=== PATIENT | female | born 1955 | race Two or more races ===

== ENCOUNTER 2018-10-20 22:20 | Inpatient (IN) | payer MEDICARE, OTHER ==
[~2018-10-20] VITALS: Ht 152.4 cm; Wt 54.4 kg
--- NOTE | 2018-10-20 22:27 | NUR ---
"BAHMAN FROM [facility] FOR SOB, VENT/TRACH, O2 SAT 99%, DENIES PAIN" PT IS ALERT, PT IS MECH VENT DEPENDENT, ABLE TO MAKE NEEDS KNOWN, PT ON MONITOR, VSS, RT AND MD AT BEDSIDE
[2018-10-20] MEDS ORDERED: ACETAMINOPHEN ES 500 MG TABLET GT ONE (23:00)
[2018-10-20] MEDS ORDERED: IV NS 0.9% 1,000 ML BAG IV ONE ×2 (23:00)
[2018-10-20] MEDS ORDERED: ACETAMINOPHEN ES 500 MG TABLET ONE (23:10)
[2018-10-20 23:11] LABS: BASOPHILS # (AUTO) 0.1 /CMM (0.0-0.2); BASOPHILS % (AUTO) 0.4 % (0.0-2.0); EOSINOPHILS % (AUTO) 0.4 % (0.0-6.0); HEMATOCRIT 36 % (33-45); HEMOGLOBIN 11.7 g/dL (11.5-14.8); LYMPHOCYTES # (AUTO) 0.7 /CMM (0.8-4.8); LYMPHOCYTES % (AUTO) 3.5 % (20.0-44.0); MEAN CORPUSCULAR HGB CONC 32 g/dl (31.0-36.0); MEAN CORPUSCULAR VOLUME 101 fL (82-100); MONOCYTES # (AUTO) 0.7 /CMM (0.1-1.30); MONOCYTES % (AUTO) 3.4 % (2.0-12.0); NEUTROPHILS # (AUTO) 18.2 /CMM (1.8-8.9); NEUTROPHILS % (AUTO) 92.3 % (43.0-81.0); PLATELET COUNT (AUTO) 323 /CMM (150-450); RED BLOOD CELL COUNT(AUTO) 3.59 MIL/uL (4.0-5.2); WHITE BLOOD COUNT (AUTO) 19.7 K/uL (4.3-11.0)
[2018-10-20 23:33] LABS: B-TYPE NATRIURETIC PEPTIDE 380 PG/ML (0-125); CALCIUM, SERUM 9.9 mg/dL (8.5-10.1); CHLORIDE 102 mmol/L (98-107); CREATININE 0.8 mg/dL (0.6-1.3); GLUCOSE 110 mg/dL (74-106); POTASSIUM 5.4 mmol/L (3.5-5.1); SODIUM SERUM 146 mmol/L (136-145); UREA NITROGEN, BLOOD 54 mg/dL (7-18)
[2018-10-20 23:37] LABS: CARBON DIOXIDE 43 mmol/L (21-32)
[2018-10-20 23:38] LABS: ALBUMIN 3.1 g/dL (3.4-5.0); BILIRUBIN,DIRECT 0.1 mg/dL (0.0-0.2); BILIRUBIN,TOTAL 0.1 mg/dL (0.2-1.0); TOTAL PROTEIN, SERUM 8.3 g/dL (6.4-8.2)
[2018-10-20 23:48] LABS: APPEARANCE,URINE SL CLOUDY (CLEAR); BILIRUBIN,URINE NEGATIVE (NEGATIVE); BLOOD, URINE NEGATIVE Ery/uL (NEGATIVE); COLOR,URINE YELLOW (YELLOW); KETONES,URINE NEGATIVE (NEGATIVE); LEUKOCYTE ESTERASE ,URINE TRACE (NEGATIVE); NITRITE, URINE NEGATIVE (NEGATIVE); PH,URINE 6.5 (5.0-8.0); PROTEIN,URINE TRACE mg/dl (NEGATIVE); UGLUCOSE NEGATIVE (NEGATIVE); UROBILINOGEN,URINE 0.2 EU/dL (0.2)
[2018-10-20 23:58] LABS: BACTERIA,URINE Few /HPF (None Seen); SQUAMOUS EPITHELIAL CELL,UR Few /HPF (None Seen)
[2018-10-21] VITALS (7 sets, daily range): BP systolic 93–131; BP diastolic 57–96
[2018-10-21] MEDS ORDERED: PIPERACILLIN /TAZOBACTAM 3.375 G in IV D5W 50 ML IV ONE ×2
[2018-10-21] MEDS ORDERED: PIPERACILLIN /TAZOBACTAM 3.375 G VIAL IV ONE (00:21)
[2018-10-21] MEDS ORDERED: SERT25TA GT (00:54)
[2018-10-21] MEDS ORDERED: METO-295 GT (00:54)
[2018-10-21] MEDS ORDERED: CHOL10002 GT (00:54)
[2018-10-21] MEDS ORDERED: ENOX40DI SQ (00:54)
[2018-10-21] MEDS ORDERED: METO25TA6 GT (00:54)
[2018-10-21] MEDS ORDERED: BUSP15TA3 GT (00:54)
[2018-10-21] MEDS ORDERED: MELA5TAB GT (00:54)
[2018-10-21] MEDS ORDERED: LANS30CA56 GT (00:54)
[2018-10-21] MEDS ORDERED: ASCO500T9 GT (00:54)
[2018-10-21] MEDS ORDERED: FERR220S16 GT (00:54)
[2018-10-21] MEDS ORDERED: MONT10TA22 GT (00:54)
[2018-10-21] MEDS ORDERED: GLYC1TAB12 GT (00:54)
[2018-10-21] MEDS ORDERED: BUDE0.5A4 IH (00:54)
[2018-10-21] MEDS ORDERED: GABA-534 PO (00:54)
[2018-10-21] MEDS ORDERED: NUT.237L31 GT (00:56)
--- NOTE | 2018-10-21 02:20 | NUR ---
SPECIAL FORCES COMMUNICATIONS SERGEANT NOTE PT ARRIVED TO UNIT VIA GURNEY ACCOMPANIED BY RT AND ER STAFF. RECEIVED PT IN STABLE CONDITION A/O X3, ABLE TO MOUTH WORDS. PT NOTED WITH TRACH/VENT. TOLERATING SETTINGS WELL. GTUBE IN PLACE WITH MINIMAL RESIDUAL. IV IN R FA IN PLACE S/L. TELE MONITOR: ST 99. ALL CURRENT NEEDS ATTENDED TO BED LOW, LOCKED, UPPER RAILS UP, PT TO BE REPOSITIONED PER PROTOCOL, AND CALL LIGHT WITHIN REACH. BODY ASSESSED WITH PHOTOS IN CHART. PT. BELONGINGS ACCOUNTED FOR. WILL CONT. TO MONITOR.
--- NOTE | 2018-10-21 02:31 | NUR ---
REPORT GIVEN TO SATHISH HERNANDEZ F OR MYLES PT WILL BE TRANSPORTED TO 3RD FLOOR VIA ACLS PROTOCOL
--- NOTE | 2018-10-21 03:30 | NUR ---
TITLE COORDINATOR NOTE PER NURSING MORTGAGE CLOSING CLERK MANUEL, WE ONLY HAVE GLUCERNA 1.2.
--- NOTE | 2018-10-21 06:27 | NUR ---
SCHOOL INSPECTOR NOTE PT IN STABLE CONDITION A/O X3, ABLE TO MOUTH WORDS. PT NOTED WITH TRACH/VENT. TOLERATING SETTINGS WELL. GTUBE IN PLACE WITH MINIMAL RESIDUAL. IV IN R FA IN PLACE S/L. TELE MONITOR: ST 95. ALL CURRENT NEEDS ATTENDED TO BED LOW, LOCKED, UPPER RAILS UP, PT REPOSITIONED PER PROTOCOL, AND CALL LIGHT WITHIN REACH. WILL CONT. TO MONITOR AND ENDORSE TO NEXT SHIFT FOR MYLES
--- NOTE | 2018-10-21 07:50 | NUR ---
USER EXPERIENCE DEVELOPER OPENING NOTES RECEIVED PT AWAKE IN BED IN NO ACUTE SIGNS OF DISTRESS. HOB ELEVATED. A/O X3. ABLE TO MOUTH WORDS, NO COMPLAIN NOTED AT THIS TIME. ON MECHANICAL VENT AT PRESCRIBED PARAMETERS, TOLERATING SETTINGS WELL WITH NO SOB NOTED. ON TELEMONITORING WITH CURRENT READING OF SINUS TACH WITH HR OF 105. IV ACCESS ON RFA G#2O INTACT, PATENT AND FLUSHES WELL. G-TUBE IN PLACE AND PATENT WITH FEEDING OF GLUCERNA 1.2 @50ML/HR IN PROGRESS, TOLERATING WELL. ASPIRATION PRECAUTIONS MAINTAINED. SAFETY MEASURES IN PLACE. BED LOW AND LOCKED. SIDE RAILS UP X2. CALL LIGHT WITHIN REACH. WILL CONTINUE TO MONITOR PT ACCORDINGLY.
[2018-10-21] MEDS ORDERED: Z GUARD REMEDY 2 OZ OINT TP PRN (10:00)
[2018-10-21] MEDS ORDERED: ONDANSETRON HCL/PF 4 MG/2 ML VIAL IVP PRN (10:00)
[2018-10-21] MEDS ORDERED: ALPRAZOLAM 0.25 MG TABLET PO ONE (10:00)
[2018-10-21] MEDS ORDERED: GLUCERNA 1.5 1,000 ML BOTTLE GT SCH (10:00)
[2018-10-21] MEDS: IPRATROPIUM NEB FS 0.5 MG/2.5 ML AMPUL.NEB NEB SCH ×4 (10:38→22:46)
[2018-10-21] MEDS: ALBUTEROL HALF STRENGTH 1.25 MG/3 ML VIAL.NEB NEB SCH ×4 (10:38→22:46)
[2018-10-21] MEDS: FERROUS SULFATE UDC 300 MG/5 ML UDC GT SCH (11:05)
[2018-10-21 11:21] LABS: BASOPHILS % (AUTO) 0.3 % (0.0-2.0); EOSINOPHILS % (AUTO) 1.6 % (0.0-6.0); HEMATOCRIT 31 % (33-45); HEMOGLOBIN 10.3 g/dL (11.5-14.8); LYMPHOCYTES # (AUTO) 0.7 /CMM (0.8-4.8); LYMPHOCYTES % (AUTO) 5.6 % (20.0-44.0); MEAN CORPUSCULAR HGB CONC 33 g/dl (31.0-36.0); MEAN CORPUSCULAR VOLUME 101 fL (82-100); MONOCYTES # (AUTO) 0.6 /CMM (0.1-1.30); NEUTROPHILS # (AUTO) 10.9 /CMM (1.8-8.9); NEUTROPHILS % (AUTO) 87.5 % (43.0-81.0); PLATELET COUNT (AUTO) 245 /CMM (150-450); RED BLOOD CELL COUNT(AUTO) 3.11 MIL/uL (4.0-5.2); WHITE BLOOD COUNT (AUTO) 12.5 K/uL (4.3-11.0)
[2018-10-21 11:23] LABS: CALCIUM, SERUM 8.9 mg/dL (8.5-10.1); CREATININE 0.7 mg/dL (0.6-1.3); POTASSIUM 4.5 mmol/L (3.5-5.1)
[2018-10-21 11:45] LABS: ABG BASE EXCESS 9.4 mmol/L; ABG OXYGEN SATURATION 96.5 % (92.0-98.5); ABG PCO2 58.6 mmHg (35.0-45.0); ABG PH 7.403 (7.350-7.450); ABG PO2 84.2 mmHg (75.0-100.0); AaDO2 133.6 mmHg; COHb 0.8 % (0.5-1.5); MetHb 0.1 % (0.0-1.5); O2Hb 95.6 % (94.0-97.0); PEEP,BG 5 cm H2O; SITE, ABG Right Radial; VT, ABG 450 mL
--- NOTE | 2018-10-21 12:01 | NUR ---
RN NOTES PATIENT NOTED AGITATED AND ANXIOUS, DAUGHTER AT BEDSIDE. SEEN AND EXAMINED BY WITH ORDERS TO GIVE XANAX 0.25MG NOTED AND CARRIED OUT. WILL CONTINUE TO MONITOR
[2018-10-21] MEDS: METOCLOPRAMIDE HCL 10 MG TABLET GT SCH ×2 (13:15→16:12)
--- NOTE | 2018-10-21 14:18 | NUR ---
RN NOTES SKIN SCRAPING AT THE BACK RASHES DONE JULIET PICKERING, SPECIMEN COLLECTED SENT TO LAB T R/O SCABIES. WILL FOLLOW-UP RESULT.
[2018-10-21] MEDS: CEFTRIAXONE 1 G in IV D5W 50 ML IV SCH (14:25)
--- NOTE | 2018-10-21 15:23 | NUR ---
RN NOTES RECEIVED A CALL FROM [employer] [facility] AND INFORMED THAT PATIENT SKIN SCRAPING IS POSITIVE FOR SCABIES. LEFT A MESSAGE FOR , AWAITING FOR RESPONSE.
[2018-10-21] MEDS: GABAPENTIN 300 MG CAPSULE GT SCH (16:12)
[2018-10-21] MEDS: GLYCOPYRROLATE 1 MG TABLET GT SCH (16:12)
[2018-10-21] MEDS: busPIRone 5 MG TABLET GT SCH ×2 (16:12→21:38)
--- NOTE | 2018-10-21 16:42 | NUR ---
RN NOTES PT FOR SERIAL DEBRIDEMENT OF RIGHT CHEST WOUND. PROCEDURE EXPLAINED TO PT AND DAUGHTER, BOTH VERBALIZED UNDERSTANDING. PT SIGNED CONSENT AND FILED ON CHART.
--- NOTE | 2018-10-21 17:57 | NUR ---
RN NOTES CALLED OFFICE, SPOKE TO THE WHITE GOODS APPLIANCE TECH AND SAID IS THE ON-CALL. REPORTED REGARDING PATIENT POSITIVE WITH SCABIES AND ASK FOR ORDERS. AWAITING FOR CALL BACK.
--- NOTE | 2018-10-21 18:15 | NUR ---
RN NOTES . WOUND DEBRIDEMENT ON RIGHT UNDERARM WOUND DONE BY JULIET PICKERING, NO BLEEDING NOTED. DRESSING REDONE. WILL CONTINUE TO MONITOR.
[2018-10-21] MEDS: HYDROCORTISONE 1% CREAM 28.35 GM TUBE TP SCH (18:24)
[2018-10-21] MEDS ORDERED: IVERMECTIN 3 MG TABLET GT ONE (18:30)
--- NOTE | 2018-10-21 18:33 | NUR ---
RN NOTES RECEIVED A CALL BACK FROM (ON-CALL FOR ) WITH ORDERS TO APPLY ELIMITE CREAM TONIGHT AT 9PM AND GIVE IVERMECTIN 9MG ONE TIME DOSE FOR SCABIES NOTED AND CARRIED OUT. WILL ENDORSED ACCORDINGLY TO NOC SHIFT FOR MYLES.
--- NOTE | 2018-10-21 18:35 | NUR ---
FINANCE BROKER CLOSING NOTES PATIENT IN BED ALERT AND ORIENTED X3, AFEBRILE WITH NO S/S OF DISTRESS OBSERVED. TRACH INTACT AND PATENT, CONNECTED TO MECHANICAL VENT TOLERATING WELL. MAINTAINED ON CONTACT ISOLATION FOR SCABIES. PROPER HAND WASHING AND ISOLATION PRECAUTION OBSERVED. HEAD OF THE BED ELEVATED, KEPT ON ASPIRATION PRECAUTION. NO COMPLAINTS OF PAIN/DISCOMFORT REPORTED OF THE TIME. KEPT CLEAN AND DRY. NEEDS ATTENDED. WILL ENDORSE ACCORDINGLY TO NOC SHIFT FOR MYLES.
--- NOTE | 2018-10-21 18:57 | NUR ---
RN NOTES IVERMECTIN 9MG GIVEN VIA GTUBE. PATIENT FOR APPLICATION OF ELIMITE CREAM TONIGHT AT 9PM. WILL ENDORSE TO NOC SHIFT
--- NOTE | 2018-10-21 20:30 | NUR ---
MOLD SETTER OPENING NOTES Received report from DAVID Lane. Patient in bed, awake, able to mouth words. Vent dependent, tolerating current settings with no SO, head of bed elevated. On tele monitor in place- sinus tach 112. IV access on RFA intact and patent. G-tube in place with Glucerna 1.2 at 50mL/hr, tolerating well. Aspiration precautions maintained. Isolation precautions maintained. Safety measures in place, call light within reach, bed in low, locked position. Will continue to monitor accordingly
[2018-10-21] MEDS: BUDESONIDE RESPULE INH 0.5 MG/2 ML AMPUL.NEB IH SCH (21:00)
[2018-10-21] MEDS ORDERED: PERMETHRIN 5% CRM 60 GM TUBE TP ONE (21:00)
[2018-10-21] MEDS: MONTELUKAST SODIUM (10MG) 10 MG TABLET GT SCH (21:38)
--- NOTE | 2018-10-21 21:40 | NUR ---
RN NOTES Elimite cream applied
[2018-10-21] MEDS ORDERED: Medication Not On Formulary EA (Melatonin 5 MG) GT SCH (22:00)
[2018-10-22] VITALS (7 sets, daily range): BP systolic 81–135; BP diastolic 45–80
[2018-10-22] MEDS: HYDROCODONE/APAP 5/325MG 1 EACH TABLET PO PRN (00:10)
--- NOTE | 2018-10-22 00:10 | NUR ---
RN NOTES Patient c/o back pain, 08/11. BP- 134/80. [place] 5/325 given as ordered. Will continue to monitor
[2018-10-22] MEDS: IPRATROPIUM NEB FS 0.5 MG/2.5 ML AMPUL.NEB NEB SCH ×6 (02:51→23:59)
[2018-10-22] MEDS: ALBUTEROL HALF STRENGTH 1.25 MG/3 ML VIAL.NEB NEB SCH ×6 (02:51→23:59)
[2018-10-22] MEDS: GLUCERNA 1.2 1,000 ML BOTTLE NG PRN (06:08)
[2018-10-22 06:48] LABS: BASOPHILS % (AUTO) 0.3 % (0.0-2.0); EOSINOPHILS % (AUTO) 5.2 % (0.0-6.0); HEMATOCRIT 28 % (33-45); HEMOGLOBIN 9.2 g/dL (11.5-14.8); LYMPHOCYTES # (AUTO) 0.9 /CMM (0.8-4.8); MEAN CORPUSCULAR HGB CONC 33 g/dl (31.0-36.0); MEAN CORPUSCULAR VOLUME 100 fL (82-100); MONOCYTES # (AUTO) 0.6 /CMM (0.1-1.30); MONOCYTES % (AUTO) 7.1 % (2.0-12.0); NEUTROPHILS # (AUTO) 6.4 /CMM (1.8-8.9); NEUTROPHILS % (AUTO) 76.4 % (43.0-81.0); PLATELET COUNT (AUTO) 223 /CMM (150-450); RED BLOOD CELL COUNT(AUTO) 2.78 MIL/uL (4.0-5.2); WHITE BLOOD COUNT (AUTO) 8.3 K/uL (4.3-11.0)
--- NOTE | 2018-10-22 06:48 | NUR ---
COUNSELLORS CLOSING NOTES Patient resting in bed, alert, oriented x 3, able to mouth words and make needs known. Vent dependent, tolerating current settings with no SOB, head of bed elevated. On tele monitor in place- sinus rhythm 99. IV access on RFA intact and patent. G-tube in place with Glucerna 1.2 at 50mL/hr, tolerating well, no residuals. Aspiration precautions and isolation precautions maintained. Safety measures in place; call light within reach, bed in low, locked position. Will endorse MYLES to oncoming RN
[2018-10-22 07:08] LABS: CREATININE 0.6 mg/dL (0.6-1.3); PHOSPHORUS 2.6 mg/dL (2.5-4.9); POTASSIUM 4.2 mmol/L (3.5-5.1)
--- NOTE | 2018-10-22 07:21 | NUR ---
WOUND CARE CONSULT WOUND CARE RECEIVED CONSULT FOR RASH UPPER BACK AND RIGHT ARMPIT EVAL. WOUND CARE WILL DEFER CONSULT AND TREATMENT PLANS TO PLASTIC SURGICAL TEAM WHO ARE CURRENTLY FOLLOWING THIS PATIENT. PATIENT WITH HIRA AT 14, ALL PRESSURE ULCER PREVENTION MEASURES ARE NOTED TO BE IN PLACE AT THIS TIME. WILL SEE PRN.
--- NOTE | 2018-10-22 07:55 | NUR ---
MS RN RECEIVED ON BED, AWAKE,ALERT,ORIENTED X3, NOT ANY FORM OF DISTRESS, RESPIRATIONS EVN AND UNLABORED,NO SOB NOTED, LUNGS ARE DIMINISH, ABDOMEN SOFT, POSITIVE BOWEL SOUNDS,DENIES PAIN AT THIS TIME, WILL MONITOR PATIENT'S CONDITION.
--- NOTE | 2018-10-22 08:00 | NUR ---
ms marissa was seen by dr. alphonso johns/ orders made and carried out.
[2018-10-22] MEDS ORDERED: SERTRALINE HCL 25 MG TABLET GT SCH (09:00)
--- NOTE | 2018-10-22 10:00 | NUR ---
ms ann due meds given late due to patient was cleaned first per request.
[2018-10-22] MEDS: BUDESONIDE RESPULE INH 0.5 MG/2 ML AMPUL.NEB IH SCH ×2 (10:07→19:55)
[2018-10-22] MEDS: GABAPENTIN 300 MG CAPSULE GT SCH ×2 (10:28→17:48)
[2018-10-22] MEDS: busPIRone 5 MG TABLET GT SCH ×4 (10:28→21:57)
[2018-10-22] MEDS: METOCLOPRAMIDE HCL 10 MG TABLET GT SCH ×3 (10:29→17:48)
[2018-10-22] MEDS: CHOLECALCIFEROL 1,000 UNIT TABLET (VIT D3) GT SCH (10:29)
[2018-10-22] MEDS: ASCORBIC ACID 500 MG TABLET GT SCH (10:29)
[2018-10-22] MEDS: ALPRAZOLAM 0.25 MG TABLET GT PRN ×2 (10:29→18:18)
[2018-10-22] MEDS: METOPROLOL TARTRATE 25 MG TABLET GT SCH (10:30)
[2018-10-22] MEDS: PANTOPRAZOLE 40 MG/PACK PACK GT SCH (10:30)
[2018-10-22] MEDS: GLYCOPYRROLATE 1 MG TABLET GT SCH ×2 (10:34→17:48)
[2018-10-22] MEDS: HYDROCORTISONE 1% CREAM 28.35 GM TUBE TP SCH ×2 (10:41→17:00)
[2018-10-22] MEDS: FERROUS SULFATE UDC 300 MG/5 ML UDC GT SCH (10:41)
[2018-10-22] MEDS: ENOXAPARIN SODIUM 40 MG/0.4 ML DISP.SYRIN SQ SCH (10:43)
--- NOTE | 2018-10-22 12:00 | NUR ---
ms rn came back from ct pulmo angio,will monitor patient.
[2018-10-22] MEDS: CEFTRIAXONE 1 G in IV D5W 50 ML IV SCH (13:20)
[2018-10-22] MEDS ORDERED: IV NS 0.9% 250 ML IV ONE (13:43)
[2018-10-22] MEDS ORDERED: IOHEXOL-350 100 ML VIAL IV ONE (13:43)
[2018-10-22] MEDS ORDERED: CT SWABBABLE VALVE TRANS SET 1 EA INFUS.SET MC ONE (13:43)
--- NOTE | 2018-10-22 16:00 | NUR ---
ms rn was seen by dr. rivera for consult w/ orders made and carried out.
--- NOTE | 2018-10-22 17:00 | NUR ---
ms rn changed dressing to right upper back.
--- NOTE | 2018-10-22 18:59 | NUR ---
ms rn on bed,no distress noted.
--- NOTE | 2018-10-22 19:30 | NUR ---
RN Notes Received patient wake, HOB elevated on mechanical vent with settings in place and tolerated well. Patient is alert and oriented x2-3, able to make needs known, mouth words and write in paper. Tele monitor reads sinus rhythm with heart rate at 84. Denies any pain and discomfort. IV access on right forearm patent and intact. Dressing on right lateral chest intact, clean and dry. Noted with rashes on her back, upper arm and lower extremities. Safety measures in place with call light within reach. Will continue to monitor.
[2018-10-22] MEDS: MONTELUKAST SODIUM (10MG) 10 MG TABLET GT SCH (21:57)
--- NOTE | 2018-10-22 22:00 | NUR ---
RN Notes Sponge bath given and wound care done. Patient refused to be turned and repositioned, risk and benefits explained patient strongly refused.
[2018-10-23] VITALS: BP 115/67
[2018-10-23] MEDS: ALPRAZOLAM 0.25 MG TABLET GT PRN ×2 (02:45→09:56)
--- NOTE | 2018-10-23 02:45 | NUR ---
RN Notes Patient awake and anxious, asking for xanax. Xanax 0.5 mg tab given via GT. Will continue to monitor.
[2018-10-23] MEDS: IPRATROPIUM NEB FS 0.5 MG/2.5 ML AMPUL.NEB NEB SCH ×6 (03:12→23:18)
[2018-10-23] MEDS: ALBUTEROL HALF STRENGTH 1.25 MG/3 ML VIAL.NEB NEB SCH ×6 (03:12→23:18)
[2018-10-23 03:57] VITALS: BP 98/59
[2018-10-23] MEDS: GLUCERNA 1.2 1,000 ML BOTTLE NG PRN (05:29)
--- NOTE | 2018-10-23 06:31 | NUR ---
RN Notes Patient sleep on and off overnight, vital signs stable, afebrile. No signs of distress and discomfort noted. Denies any pain, nausea and vomiting. Tele monitor reads Sinus Rhythm with heart rate at 84. Suction secretions PRN. Kept patient clean and dry, patient refused to be turned and repositioned despite risk and benefits were explained. Isolation precaution observed. Safety measures observed. All needs attended with call light within reached. Will continue to monitor and will endorse pt accordingly.
--- NOTE | 2018-10-23 07:48 | NUR ---
TAR AND AMMONIA PUMP OPERATOR NOTES PATIENT RESTING, LYING IN BED, NO RESPIRATORY DISTRESS NOTED, VENT SETTINGS ORDERED, NO C/O PAIN AT THIS TIME. IV ACCESS SITE INTACT AND PATENT. PATIENT'S NEEDS ATTENDED. BED ON LOWEST LOCKED POSITION. WILL CONTINUE TO MONITOR.
[2018-10-23 08:00] VITALS: BP 99/51
[2018-10-23] MEDS: BUDESONIDE RESPULE INH 0.5 MG/2 ML AMPUL.NEB IH SCH ×2 (08:03→21:45)
[2018-10-23] MEDS: busPIRone 5 MG TABLET GT SCH ×4 (08:31→21:12)
[2018-10-23] MEDS: PANTOPRAZOLE 40 MG/PACK PACK GT SCH (08:31)
[2018-10-23] MEDS: FERROUS SULFATE UDC 300 MG/5 ML UDC GT SCH (08:31)
[2018-10-23] MEDS: ESCITALOPRAM OXALATE (10 MG) 10 MG TABLET GT SCH (08:31)
[2018-10-23] MEDS: GABAPENTIN 300 MG CAPSULE GT SCH ×3 (08:32→17:06)
[2018-10-23] MEDS: METOCLOPRAMIDE HCL 10 MG TABLET GT SCH ×3 (08:32→17:06)
[2018-10-23] MEDS: CHOLECALCIFEROL 1,000 UNIT TABLET (VIT D3) GT SCH (08:32)
[2018-10-23] MEDS: ASCORBIC ACID 500 MG TABLET GT SCH (08:32)
[2018-10-23] MEDS: GLYCOPYRROLATE 1 MG TABLET GT SCH ×2 (08:32→17:06)
[2018-10-23] MEDS: ENOXAPARIN SODIUM 40 MG/0.4 ML DISP.SYRIN SQ SCH (08:33)
[2018-10-23] MEDS: METOPROLOL TARTRATE 25 MG TABLET GT SCH (08:36)
[2018-10-23] MEDS: HYDROCORTISONE 1% CREAM 28.35 GM TUBE TP SCH ×2 (09:31→17:07)
[2018-10-23 11:28] LABS: BASOPHILS % (AUTO) 0.4 % (0.0-2.0); EOSINOPHILS % (AUTO) 3.5 % (0.0-6.0); HEMATOCRIT 28 % (33-45); HEMOGLOBIN 9.4 g/dL (11.5-14.8); LYMPHOCYTES # (AUTO) 0.7 /CMM (0.8-4.8); LYMPHOCYTES % (AUTO) 9.6 % (20.0-44.0); MEAN CORPUSCULAR HGB CONC 33 g/dl (31.0-36.0); MEAN CORPUSCULAR VOLUME 99 fL (82-100); MONOCYTES # (AUTO) 0.4 /CMM (0.1-1.30); MONOCYTES % (AUTO) 5.3 % (2.0-12.0); NEUTROPHILS # (AUTO) 5.9 /CMM (1.8-8.9); NEUTROPHILS % (AUTO) 81.2 % (43.0-81.0); PLATELET COUNT (AUTO) 214 /CMM (150-450); RED BLOOD CELL COUNT(AUTO) 2.84 MIL/uL (4.0-5.2); WHITE BLOOD COUNT (AUTO) 7.3 K/uL (4.3-11.0)
[2018-10-23 11:45] LABS: ALBUMIN 2.5 g/dL (3.4-5.0); BILIRUBIN,TOTAL 0.1 mg/dL (0.2-1.0); CALCIUM, SERUM 8.9 mg/dL (8.5-10.1); CREATININE 0.6 mg/dL (0.6-1.3); MAGNESIUM 2.1 mg/dL (1.8-2.4); PHOSPHORUS 3.4 mg/dL (2.5-4.9); POTASSIUM 4.1 mmol/L (3.5-5.1); TOTAL PROTEIN, SERUM 6.7 g/dL (6.4-8.2)
[2018-10-23] MEDS: CEFTRIAXONE 1 G in IV D5W 50 ML IV SCH (13:17)
--- NOTE | 2018-10-23 13:27 | NUR ---
RT NOTE PT REFUSED FOR CUFF TO BE DEFLATED DURING LUNCH RISKS AND BENEFITS EXPLAINED, PT JERRICA EATING WELL NO ASPIRATION NOTED NO SOB NOTED PT STABLE
[2018-10-23 16:00] VITALS: BP 108/68
[2018-10-23 16:33] LABS: OCCULT BLOOD STOOL NEGATIVE (NEGATIVE)
--- NOTE | 2018-10-23 18:19 | NUR ---
COAL DRIER OPERATOR NOTES PATIENT AWAKE, LYING IN BED, DAUGHTER AT BEDSIDE. PATIENT IN NO RESPIRATORY DISTRESS, NO COMPLAINT OF PAIN AT THIS TIME. PATIENT'S NEEDS ATTENDED. BED ON LOWEST LOCKED POSITION, CALL LIGHT WITHIN REACH.
[2018-10-23 20:10] VITALS: BP 106/65
--- NOTE | 2018-10-23 20:32 | NUR ---
MS/RN ON INITIAL ROUNDS AT 19:30. PATIENT WAS AWAKE, ALERT, COMFORTABLE, NO C/O PAIN, NO DISTRESS NOTED, MECH VENT WORKING WELL, GT FEEDING INFUSING, HOB ELEVATED, CALL LIGHT IN REACH. WILL MONITOR.
[2018-10-23] MEDS: MONTELUKAST SODIUM (10MG) 10 MG TABLET GT SCH (21:12)
[2018-10-24 00:24] VITALS: BP 137/73
[2018-10-24] MEDS: HYDROCODONE/APAP 5/325MG 1 EACH TABLET PO PRN ×2 (00:27→04:22)
--- NOTE | 2018-10-24 01:30 | NUR ---
MS/RN PATIENT IS SLEEPING AT THIS TIME, APPEAR COMFORTABLE, NO SIGNS OF DISTRESS NOTED, CALL LIGHT IN REACH. WILL CONTINUE TO MONITOR.
[2018-10-24] MEDS: ALBUTEROL HALF STRENGTH 1.25 MG/3 ML VIAL.NEB NEB SCH ×6 (04:02→23:19)
[2018-10-24] MEDS: IPRATROPIUM NEB FS 0.5 MG/2.5 ML AMPUL.NEB NEB SCH ×6 (04:02→23:19)
[2018-10-24 04:20] VITALS: BP 124/86
[2018-10-24] MEDS: GLUCERNA 1.2 1,000 ML BOTTLE NG PRN (05:14)
--- NOTE | 2018-10-24 06:26 | NUR ---
MS/RN PATIENT IS STILL SLEEPING AT THIS TIME, AROUSABLE, APPEAR COMFORTABLE, NO SIGNS OF DISTRESS NOTED, HOB ELEVATED, GT FEEDING INFUSING, NO RESIDUAL NOTED. WILL CONTINUE TO MONITOR.
--- NOTE | 2018-10-24 07:50 | NUR ---
SPIRITUAL COUNSELOR NOTES PATIENT RESTING, LYING IN BED, NO RESPIRATORY DISTRESS NOTED, VENT SETTINGS ORDERED, NO C/O PAIN AT THIS TIME. IV ACCESS SITE INTACT AND PATENT. PATIENT'S NEEDS ATTENDED. BED ON LOWEST LOCKED POSITION. WILL CONTINUE TO MONITOR.
[2018-10-24 08:00] VITALS: BP 133/77
[2018-10-24] MEDS: BUDESONIDE RESPULE INH 0.5 MG/2 ML AMPUL.NEB IH SCH ×2 (08:01→20:33)
[2018-10-24] MEDS: busPIRone 5 MG TABLET GT SCH ×4 (08:26→20:32)
[2018-10-24] MEDS: PANTOPRAZOLE 40 MG/PACK PACK GT SCH (08:26)
[2018-10-24] MEDS: ESCITALOPRAM OXALATE (10 MG) 10 MG TABLET GT SCH (08:26)
[2018-10-24] MEDS: ASCORBIC ACID 500 MG TABLET GT SCH (08:26)
[2018-10-24] MEDS: CHOLECALCIFEROL 1,000 UNIT TABLET (VIT D3) GT SCH (08:26)
[2018-10-24] MEDS: METOPROLOL TARTRATE 25 MG TABLET GT SCH (08:26)
[2018-10-24] MEDS: METOCLOPRAMIDE HCL 10 MG TABLET GT SCH ×3 (08:26→17:54)
[2018-10-24] MEDS: GABAPENTIN 300 MG CAPSULE GT SCH ×3 (08:27→17:54)
[2018-10-24] MEDS: ENOXAPARIN SODIUM 40 MG/0.4 ML DISP.SYRIN SQ SCH (08:27)
[2018-10-24] MEDS: GLYCOPYRROLATE 1 MG TABLET GT SCH ×2 (08:27→17:54)
[2018-10-24] MEDS: FERROUS SULFATE UDC 300 MG/5 ML UDC GT SCH (08:42)
[2018-10-24] MEDS: HYDROCORTISONE 1% CREAM 28.35 GM TUBE TP SCH ×2 (09:23→17:55)
[2018-10-24 12:10] LABS: COMPLEMENT C3, SERUM 116 mg/dL (82-167); COMPLEMENT C4, SERUM 34 mg/dL (14-44)
[2018-10-24] MEDS: CEFTRIAXONE 1 G in IV D5W 50 ML IV SCH (13:20)
--- NOTE | 2018-10-24 14:14 | NUR ---
CATHY received a call from DAVID So informing CATHY that pt's family is wishing for a toolroom keeper to visit with the pt. CATHY contacted [facility] and spoke with Gracie who informed CATHY that Father Bobby Hyatt will be visiting the pt. CATHY updated DAVID So with aforementioned information.
[2018-10-24] MEDS: hydrOXYzine PAMOATE 25 MG CAPSULE PO PRN (14:57)
[2018-10-24 15:47] VITALS: BP 139/83
[2018-10-24] MEDS: ACETAMINOPHEN 325 MG TABLET PO PRN (16:51)
[2018-10-24] MEDS: GLUCERNA 1.2 1,000 ML BOTTLE GT PRN (18:00)
[2018-10-24] MEDS ORDERED: GLUCERNA 1.2 1,000 ML BOTTLE NG PRN (18:00)
--- NOTE | 2018-10-24 18:30 | NUR ---
DISPENSING OPTICIAN APPRENTICE NOTES PATIENT RESTING, LYING IN BED. PATIENT IN NO RESPIRATORY DISTRESS, NO COMPLAINT OF PAIN AT THIS TIME. PATIENT'S NEEDS ATTENDED. BED ON LOWEST LOCKED POSITION, CALL LIGHT WITHIN REACH.
--- NOTE | 2018-10-24 19:47 | NUR ---
TELE/RN OPENING NOTES RECEIVED PATIENT IN BED, HOB ELEVATED. AWAKE, ALERT X2, CAN OPEN MOUTH AND MOUTH WORDS, GOOD EYE CONTACT. ON MECHANICAL VENT WITH PRESCRIBED SETTING, PATIENT REQUIRE EXTENSIVE ASSISTANCE FOR ALL ADLS, ON GTUBE FEEDING TO START 6PM END AT TEN AM FOR 16 HOURS AND CAN EAT SOFT DIET DURING LUNCH AND DINNER. PATIENT REQUIRE MONITORING FOR ANY CHANGES, ALSO ON NEEDED MEDICATION FOR ANXIETY, CONTACT ISOLATION DUE TO SCABIES WITH TREAMTNETB MONITOIRNF FOR RIGHT CHEST WOUND TO PACK WITH GAUZE AND ABDOMINAL PAD. WILL CONTINUE TO MONITOR, REPOSITION AND TURNED, ABLE TO USE HANDS AND ASSIST IN SUCTION NEEDED.
[2018-10-24 20:00] VITALS: BP 106/72
[2018-10-24] MEDS: MONTELUKAST SODIUM (10MG) 10 MG TABLET GT SCH (21:02)
[2018-10-25] VITALS: BP 133/70
[2018-10-25] MEDS: hydrOXYzine PAMOATE 25 MG CAPSULE PO PRN (00:05)
--- NOTE | 2018-10-25 00:08 | NUR ---
TE/E/RN NOTES PATIENT AWAKE, REPORTED ITCHINESS AND NEED NEEDED MEDICATION VISTARIL, WILL ADMINISTER.
[2018-10-25] MEDS: GLUCERNA 1.2 1,000 ML BOTTLE GT PRN (01:09)
[2018-10-25] MEDS: IPRATROPIUM NEB FS 0.5 MG/2.5 ML AMPUL.NEB NEB SCH ×6 (03:44→23:47)
[2018-10-25] MEDS: ALBUTEROL HALF STRENGTH 1.25 MG/3 ML VIAL.NEB NEB SCH ×6 (03:44→23:47)
[2018-10-25 04:00] VITALS: BP 113/79
--- NOTE | 2018-10-25 06:44 | NUR ---
TELE/RN NOTES PATIENT ABLE TO SLEEP BUT REQUIRE FREQUENT MONITORING AND NEEDED SUCTION AND BREATHING TREATMENT. KEPT SKIN INTACT APPLIED PRESCRIBED MEDICATION FOR ITCH. G-TUBE SITE CHECK WITH NO RESIDUAL AND PATENT. WOUND DRESSING ON RIGHT CHEST. BED LOCKED, CALL LIGHTS WITHIN REACH, WILL ENDORSE TO AM RN FOR MYLES.
--- NOTE | 2018-10-25 07:53 | NUR ---
CUTTER INSPECTOR OPENING NOTES RECEIVED PATIENT IN BED RESTING COMFORTABLY IN MODERATE HIGH BACK REST. A/O X 2. ON MECHANICAL VENT WITH PRESCRIBED SETTING, PATIENT REQUIRE EXTENSIVE ASSISTANCE FOR ALL ADLS. NO COMPLAIN OF PAIN OR DISCOMFORT AT THIS TIME. IV ACCESS ON RIGHT FA #20. PATENT AND INTACT. ON TELE MONITORING WITH CURRENT READING OF SR, HR OF 90'S. NOTED WITH G-TUBE, NO RESIDUAL AND PATENT. ON ISOLATION PRECAUTION FOR SCABIES. SAFETY MEASURES IN PLACE, BED IN LOW LOCKED POSITION WITH SIDE RAILS UP X2. CALL LIGHT WITHIN EASY REACH. WILL CONTINUE TO MONITOR.
[2018-10-25 08:00] VITALS: BP 128/68
[2018-10-25] MEDS: ASCORBIC ACID 500 MG TABLET GT SCH (08:41)
[2018-10-25] MEDS: ESCITALOPRAM OXALATE (10 MG) 10 MG TABLET GT SCH (08:41)
[2018-10-25] MEDS: GLYCOPYRROLATE 1 MG TABLET GT SCH ×2 (08:41→16:22)
[2018-10-25] MEDS: METOCLOPRAMIDE HCL 10 MG TABLET GT SCH ×3 (08:41→16:22)
[2018-10-25] MEDS: PANTOPRAZOLE 40 MG/PACK PACK GT SCH (08:41)
[2018-10-25] MEDS: GABAPENTIN 300 MG CAPSULE GT SCH ×3 (08:41→16:22)
[2018-10-25] MEDS: busPIRone 5 MG TABLET GT SCH ×4 (08:41→20:55)
[2018-10-25] MEDS: CHOLECALCIFEROL 1,000 UNIT TABLET (VIT D3) GT SCH (08:41)
[2018-10-25] MEDS: METOPROLOL TARTRATE 25 MG TABLET GT SCH (08:43)
[2018-10-25] MEDS: FERROUS SULFATE UDC 300 MG/5 ML UDC GT SCH (08:51)
[2018-10-25] MEDS: HYDROCORTISONE 1% CREAM 28.35 GM TUBE TP SCH ×2 (08:58→16:23)
[2018-10-25] MEDS: ENOXAPARIN SODIUM 40 MG/0.4 ML DISP.SYRIN SQ SCH (09:00)
[2018-10-25] MEDS: BUDESONIDE RESPULE INH 0.5 MG/2 ML AMPUL.NEB IH SCH ×4 (10:27→23:47)
[2018-10-25 12:00] VITALS: BP 103/67
[2018-10-25] MEDS: CEFTRIAXONE 1 G in IV D5W 50 ML IV SCH (13:25)
[2018-10-25 16:00] VITALS: BP 106/65
--- NOTE | 2018-10-25 18:32 | NUR ---
RT NOTE PT REMAINS MECHANICALLY VENTILATED VIA CUFFED TRACHEOSTOMY TUBE. CUFF INFLATED. TRACH TUBE MIDLINE AND SECURE. VENTILATOR SETTINGS PRESCRIBED. ALARMS SET PER PROTOCOL AND AUDIBLE. VENT PLUGGED IN TO RED OUTLET. AMBU BAG AT BED SIDE. NO DISTRESS NOTED. Addendum: 10/25/18 at 1833 by JESSICA AVILA RT Amended: Links added.
--- NOTE | 2018-10-25 18:38 | NUR ---
LICENSED INSURANCE SALES AGENT CLOSING NOTES PATIENT IN BED RESTING COMFORTABLY IN MODERATE HIGH BACK REST. A/O X 2. ON MECHANICAL VENT, NO COMPLAINED OF SOB OR ANY S/S OF ACUTE DISTRESS. IV ACCESS ON RIGHT FA #20. PATENT AND INTACT. ON TELE MONITORING WITH CURRENT READING OF SR, HR OF 70'S. WITH G-TUBE, NO RESIDUAL AND PATENT. ISOLATION PRECAUTION MAINTAINED. ALL NURSING CARE PROVIDED. SAFETY MEASURES IN PLACE, BED IN LOW LOCKED POSITION WITH SIDE RAILS UP X2. CALL LIGHT WITHIN EASY REACH. WILL ENDORSED TO BOX PULLER NURSE FOR MYLES.
[2018-10-25] MEDS: ACETAMINOPHEN 325 MG TABLET PO PRN (18:48)
--- NOTE | 2018-10-25 19:30 | NUR ---
RESPIRATORY THERAPY DIRECTOR OPENING NOTES RECEIVED PATIENT IN BED. A/O X4. PATIENT IS ON A VENTILATOR. RESPIRATIONS ARE EVEN AND UNLABORED. NO SIGNS OF SOB NOTED. EXTERNAL TELE MONITOR READS SR WITH HR 77. IV ACCESS IN RFA GAUGE 20 PATENT AND SALINE LOCKED. GTUBE IS PRESENT, NO RESIDUAL, PLACEMENT CHECKED, FLUSHED WITH NO RESISTANCE. PATIENT COMPLAINS OF PAIN AT THE GTUBE SITE. GTUBE SITE IS RED WITH SCANT AMOUNT OF PURULENT EXUDATE. PICTURE TAKEN AND PLACED IN CHART. BED IS LOW AND. LOCKED. CALL LIGHT WITHIN REACH. WILL CONTINUE TO MONITOR. Addendum: 10/25/18 at 2006 by WARREN RUTHERFORD RN REVISION A/O X2
[2018-10-25 20:00] VITALS: BP 115/63
[2018-10-25] MEDS: MONTELUKAST SODIUM (10MG) 10 MG TABLET GT SCH (21:32)
[2018-10-26] VITALS: BP 121/50
[2018-10-26] MEDS: hydrOXYzine PAMOATE 25 MG CAPSULE PO PRN ×2 (00:23→10:19)
[2018-10-26] MEDS: GLUCERNA 1.2 1,000 ML BOTTLE GT PRN ×2 (00:23→18:07)
--- NOTE | 2018-10-26 00:25 | NUR ---
VIDEO TAPE TRANSFERRER NOTE 0023 GAVE VISTARIL 25MG THROUGH GTUBE TO PATIENT FOR COMPLAINT OF ITCHINESS.
[2018-10-26] MEDS: IPRATROPIUM NEB FS 0.5 MG/2.5 ML AMPUL.NEB NEB SCH ×6 (03:54→23:37)
[2018-10-26] MEDS: ALBUTEROL HALF STRENGTH 1.25 MG/3 ML VIAL.NEB NEB SCH ×6 (03:54→23:37)
[2018-10-26 04:00] VITALS: BP 134/78
--- NOTE | 2018-10-26 06:51 | NUR ---
CHAPLAINCY CLOSING NOTES PATIENT RESTING IN BED. A/O X4. PATIENT IS ON A VENTILATOR. RESPIRATIONS ARE EVEN AND UNLABORED. NO SIGNS OF SOB NOTED. DENIES PAIN THROUGHT SHIFT. EXTERNAL TELE MONITOR READS SR WIHT ELEVATED TWAVES WITH HR 74. IV ACCESS MAINTAINED IN RFA GAUGE 20 PATENT AND SALINE LOCKED. GTUBE IS PRESENT, NO RESIDUAL, TOLERATED TF WELL. FLUSHED WITH NO RESISTANCE. KEOT CLEAN AND DRY. PROVIDED WOUND CARE ORDERED. TURNED AND OFFLOADED PATIENT Q2H. BED IS LOW AND. LOCKED. CALL LIGHT WITHIN REACH. WILL ENDORSE TO NEXT SHIFT FOR MYLES.
[2018-10-26] MEDS: BUDESONIDE RESPULE INH 0.5 MG/2 ML AMPUL.NEB IH SCH ×2 (07:33→21:46)
--- NOTE | 2018-10-26 07:45 | NUR ---
OFFICE ADMINISTRATOR OPENING NOTES RECEIVED PATIENT IN BED, ASLEEP, AROUSABLE. RESPONSIVE TO VERBAL AND TACTILE STIMULI. HOB ELEVATED. TRACH PORTEX [address] JERRICA MECHANICAL VENTILATION WELL ORDERED WITHOUT S/S OF COMPLICATIONS. AC:20, TV:420; FIO2 40%; NO PEEP. GT INTACT AND PATENT JERRICA ENTERAL FEEDING WELL ORDERED. NO RESIDUAL NOTED, PLACEMENT CHECKED VIA AUSCULTATION. LFA # 20 INTACT AND PATENT. BED IN LOWEST POSITION, LOCKED. CONTACT PRECAUTIONS OBSERVED AT ALL TIMES, WITH GOOD HANDWASHING TECHNIQUE RENDERED. BED SIDERAILS UP X2. CALL LIGHT WITHIN EACH. PATIENT ABLE TO MAKE NEEDS KNOWN THROUGH VERBAL AND WRITTEN COMMUNICATION.
[2018-10-26 08:00] VITALS: BP 122/79
[2018-10-26] MEDS: ESCITALOPRAM OXALATE (10 MG) 10 MG TABLET GT SCH (09:48)
[2018-10-26] MEDS: METOPROLOL TARTRATE 25 MG TABLET GT SCH (09:49)
[2018-10-26] MEDS: GABAPENTIN 300 MG CAPSULE GT SCH ×3 (09:49→16:52)
[2018-10-26] MEDS: PANTOPRAZOLE 40 MG/PACK PACK GT SCH (09:49)
[2018-10-26] MEDS: ASCORBIC ACID 500 MG TABLET GT SCH (09:50)
[2018-10-26] MEDS: CHOLECALCIFEROL 1,000 UNIT TABLET (VIT D3) GT SCH (09:50)
[2018-10-26] MEDS: GLYCOPYRROLATE 1 MG TABLET GT SCH ×2 (09:50→16:52)
[2018-10-26] MEDS: METOCLOPRAMIDE HCL 10 MG TABLET GT SCH ×3 (09:50→16:52)
[2018-10-26] MEDS: busPIRone 5 MG TABLET GT SCH ×4 (09:50→21:46)
[2018-10-26] MEDS: FERROUS SULFATE UDC 300 MG/5 ML UDC GT SCH (09:54)
[2018-10-26] MEDS: ENOXAPARIN SODIUM 40 MG/0.4 ML DISP.SYRIN SQ SCH (09:56)
[2018-10-26] MEDS: HYDROCORTISONE 1% CREAM 28.35 GM TUBE TP SCH ×2 (10:03→16:53)
[2018-10-26 12:00] VITALS: BP 121/75
[2018-10-26 12:45] LABS: OCCULT BLOOD STOOL NEGATIVE (NEGATIVE)
[2018-10-26] MEDS: PROSOURCE / PROSTAT (PYXIS) 30 ML UDC GT SCH ×2 (13:31→16:52)
[2018-10-26] MEDS: CEFTRIAXONE 1 G in IV D5W 50 ML IV SCH (13:39)
[2018-10-26 16:00] VITALS: BP 99/57
--- NOTE | 2018-10-26 18:47 | NUR ---
BRUSH CLEANER CLOSING NOTES PATIENT IN BED AWAKE, WATCHING TV. RESTING COMFORTABLY IN BED. RESPONSIVE TO VERBAL AND TACTILE STIMULI. HOB ELEVATED. TRACH PORTEX #[address] JERRICA MECHANICAL VENTILATION WELL ORDERED WITHOUT S/S OF COMPLICATIONS. PATIENT WITH EPISODES OF ANXIOUSNESS DURING THE SHIFT. REDIRECTION PROVIDED INCLUDING RELAXATION TECHNIQUES SUCH BREATHING TECHNIQUES RENDERED. GT INTACT AND PATENT JERRICA ENTERAL FEEDING WELL ORDERED. NO RESIDUAL NOTED. LFA # 22 INTACT AND PATENT. BED IN LOWEST POSITION, LOCKED. CONTACT PRECAUTIONS OBSERVED AT ALL TIMES. BED SIDERAILS UP X2. CALL LIGHT WITHIN EACH. PATIENT ABLE TO MAKE NEEDS KNOWN THROUGH VERBAL AND WRITTEN COMMUNICATION. IN NO APPARENT DISTRESS.
[2018-10-26 20:00] VITALS: BP 146/76
--- NOTE | 2018-10-26 20:46 | NUR ---
COUNT ROOM CLERK OPENING NOTES RECEIVED PATIENT IN BED, ASLEEP, AROUSABLE. . TRACH PORTEX [address] JERRICA MECHANICAL VENTILATION TOLERATED . AC:20, TV:420; FIO2 40%; NO PEEP. GT INTACT AND PATENT TOLERATING FEEDING, NO RESIDUAL NOTED HOB ELEVATED. LFA # 20 INTACT AND PATENT. BED IN LOWEST LOCKED POSITION. CONTACT PRECAUTIONS OBSERVED AT ALL TIMES, CALL LIGHT WITHIN EACH AT ALL TIMES. WILL CONTINUE TO MONITOR FREQUENTLY.
[2018-10-26] MEDS: MONTELUKAST SODIUM (10MG) 10 MG TABLET GT SCH (21:46)
[2018-10-27] VITALS: BP 112/73
[2018-10-27] MEDS: hydrOXYzine PAMOATE 25 MG CAPSULE PO PRN (02:19)
[2018-10-27] MEDS: ALBUTEROL HALF STRENGTH 1.25 MG/3 ML VIAL.NEB NEB SCH ×6 (03:41→23:41)
[2018-10-27] MEDS: IPRATROPIUM NEB FS 0.5 MG/2.5 ML AMPUL.NEB NEB SCH ×6 (03:41→23:41)
[2018-10-27 04:00] VITALS: BP 117/69
--- NOTE | 2018-10-27 06:17 | NUR ---
RECORDS SUPERVISOR CLOSING NOTES PATIENT REMAINS IN BED, ASLEEP, EASILY AROUSED TO NAME CALL. TRACH PORTEX [address] MECHANICAL VENTILATION TOLERATED . AC:20, TV:420; FIO2 40%; NO PEEP. GT INTACT AND PATENT TOLERATING FEEDING, NO RESIDUAL NOTED HOB ELEVATED. LFA # 20 INTACT AND PATENT. BED IN LOWEST LOCKED POSITION. CONTACT PRECAUTIONS OBSERVED AT ALL TIMES, CALL LIGHT WITHIN EACH AT ALL TIMES. WILL ENDORSE TO DAY NURSE FOR MYLES
[2018-10-27 07:00] VITALS: BP 134/72
--- NOTE | 2018-10-27 07:43 | NUR ---
COMMODITY SUPERVISOR OPENING NOTES PATIENT IN BED ALERT AND ORIENTED X3, AFEBRILE WITH NO S/S OF DISTRESS OBSERVED. TRACH INTACT AND PATENT CONNECTED TO MECHANICAL VENTILATION. GTUBE INTACT AND PATENT WITH NO RESIDUAL ASPIRATED. ACTIVE BOWEL SOUNDS HEARD ON ALL QUADRANTS WITH SOFT ABDOMEN AND BLADDER. MAINTAINED ON CONTACT ISOLATION FOR SCABIES, PROPER HANDWASHING AND ISOLATION PRECAUTION OBSERVED. NO COMPLAINTS OF PAIN/DISCOMFORT REPORTED OF THE TIME. CONTINUOUSLY MONITORED.
[2018-10-27] MEDS: BUDESONIDE RESPULE INH 0.5 MG/2 ML AMPUL.NEB IH SCH ×2 (08:16→20:46)
[2018-10-27] MEDS: PANTOPRAZOLE 40 MG/PACK PACK GT SCH (08:52)
[2018-10-27] MEDS: CHOLECALCIFEROL 1,000 UNIT TABLET (VIT D3) GT SCH (08:52)
[2018-10-27] MEDS: ASCORBIC ACID 500 MG TABLET GT SCH (08:52)
[2018-10-27] MEDS: ESCITALOPRAM OXALATE (10 MG) 10 MG TABLET GT SCH (08:52)
[2018-10-27] MEDS: GLYCOPYRROLATE 1 MG TABLET GT SCH ×2 (08:52→17:05)
[2018-10-27] MEDS: MULTIVITAMINS,THERAGRAN 1 UDTAB TABLET GT SCH (08:52)
[2018-10-27] MEDS: FERROUS SULFATE UDC 300 MG/5 ML UDC GT SCH (08:52)
[2018-10-27] MEDS: METOCLOPRAMIDE HCL 10 MG TABLET GT SCH ×3 (08:52→17:04)
[2018-10-27] MEDS: GABAPENTIN 300 MG CAPSULE GT SCH ×3 (08:53→17:04)
[2018-10-27] MEDS: METOPROLOL TARTRATE 25 MG TABLET GT SCH (08:53)
[2018-10-27] MEDS: busPIRone 5 MG TABLET GT SCH ×4 (09:00→21:07)
[2018-10-27] MEDS: PROSOURCE / PROSTAT (PYXIS) 30 ML UDC GT SCH ×3 (09:02→17:05)
[2018-10-27] MEDS: ENOXAPARIN SODIUM 40 MG/0.4 ML DISP.SYRIN SQ SCH (09:07)
[2018-10-27] MEDS: HYDROCORTISONE 1% CREAM 28.35 GM TUBE TP SCH ×2 (10:14→17:06)
--- NOTE | 2018-10-27 10:18 | NUR ---
RN NOTES SPOKE TO WILBERT MALHOTRA STATING [facility] IS NOT AVAILABLE, THERE WAS AN ORDER PLACED WAITING FOR DELIVERY.
[2018-10-27] MEDS: predniSONE 20 MG TABLET GT SCH (12:27)
[2018-10-27] MEDS: CEFTRIAXONE 1 G in IV D5W 50 ML IV SCH (15:15)
--- NOTE | 2018-10-27 15:30 | NUR ---
RN NOTES AND KILN CAR UNLOADER RAHEEL MADE AWARE OF POSITIVE SCABIES SCRAPPING WITH ORDERS TO REPEAT APPLICATION OS ELIMITE CREAM TONIGHT AT 9PM AND SHOWER TOMORROW AT 9AM, NOTED AND CARRIED OUT. WILL ENDORSE TO NOC SHIFT ACCORDINGLY.
[2018-10-27 16:00] VITALS: BP 103/66
[2018-10-27] MEDS: GLUCERNA 1.2 1,000 ML BOTTLE GT PRN (18:21)
--- NOTE | 2018-10-27 18:40 | NUR ---
THERAPIST'S ASSISTANT CLOSING NOTES RESIDENT IN BED ALERT AND ORIENTED X 4, AFEBRILE WITH NO S/S OF DISTRESS OBSERVED. TRACH INTACT AND PATENT CONNECTED TO MECHANICAL VENTILATION. GTUBE INTACT AND PATENT WITH NO RESIDUAL ASPIRATED. NO NAUSEA/VOMITING NOTED WITHIN THE SHIFT. NO COMPLAINTS OF PAIN/DISCOMFORT REPORTED. STILL NOTED WITH EPISODES OF ANXIETY, RELAXATION TECHNIQUE AND DIVERSIONAL ACTIVITIES LIKE WATCHING TV/LISTENING TO MUSIC THROUGH HER CELLPHONE PROVIDED. MEDICATIONS AND WOUND TREATMENTS GIVEN ORDERED. MAINTAINED ON CONTACT ISOLATION FOR SCABIES, PROPER HANDWASHING AND ISOLATION PRECAUTIONS OBSERVED. KEPT CLEAN AND DRY, REPOSITIONED AND SUCTIONED EVERY 2HRS AND NEEDED/REQUESTED. WILL ENDORSE TO NOC SHIFT REGARDING APPLICATION OF ELIMITE CREAM AT 9PM FOR POSITIVE SKIN SCRAPPING FOR SCABIES AND FOR CONTINUITY OF CARE.
--- NOTE | 2018-10-27 19:23 | NUR ---
RETOUCHING OPERATOR OPENING NOTES RECEIVED PATIENT IN BED, ASLEEP, AROUSABLE. . TRACH PORTEX [address] MECHANICAL VENTILATION TOLERATED . AC:20, TV:420; FIO2 40%; NO PEEP. GT INTACT AND PATENT TOLERATING FEEDING, NO RESIDUAL NOTED HOB ELEVATED. LFA # 20 INTACT AND PATENT. BED IN LOWEST LOCKED POSITION. CONTACT PRECAUTIONS OBSERVED AT ALL TIMES, CALL LIGHT WITHIN EACH AT ALL TIMES. WILL CONTINUE TO MONITOR FREQUENTLY.
[2018-10-27 20:00] VITALS: BP 113/61
[2018-10-27] MEDS ORDERED: PERMETHRIN 5% CRM 60 GM TUBE TP ONE (21:00)
[2018-10-27] MEDS: MONTELUKAST SODIUM (10MG) 10 MG TABLET GT SCH (21:07)
[2018-10-28] VITALS: BP 100/63
[2018-10-28] MEDS: hydrOXYzine PAMOATE 25 MG CAPSULE PO PRN (02:04)
[2018-10-28] MEDS: ALBUTEROL HALF STRENGTH 1.25 MG/3 ML VIAL.NEB NEB SCH ×6 (02:43→23:40)
[2018-10-28] MEDS: IPRATROPIUM NEB FS 0.5 MG/2.5 ML AMPUL.NEB NEB SCH ×6 (02:43→23:40)
[2018-10-28 04:00] VITALS: BP 108/66
[2018-10-28] MEDS: BUDESONIDE RESPULE INH 0.5 MG/2 ML AMPUL.NEB IH SCH ×2 (07:26→20:09)
--- NOTE | 2018-10-28 07:43 | NUR ---
CHEMICAL ENGINEERING TECHNOLOGIST OPENING NOTES PATIENT IN BED ASLEEP, AFEBRILE WITH NO S/S OF DISTRESS OBSERVED. TRACH INTACT AND PATENT CONNECTED TO MECHANICAL VENTILATION. BREATHING REGULAR AND UNLABORED WITH RHONCHI BREATH SOUNDS ON BOTH LUNG HOWE. GTUBE INTACT AND PATENT WITH NO RESIDUAL ASPIRATED. ACTIVE BOWEL SOUNDS HEARD ON ALL QUADRANTS WITH SOFT ABDOMEN AND BLADDER. IV HEPLOCK G22 ON LEFT FOREARM INTACT WITH NO BLEEDING OR S/S OF INFILTRATION/INFECTION SEEN. ON CONTACT ISOLATION FOR SCABIES, PROPER HANDWASHING AND ISOLATION PRECAUTION OBSERVED. FOR SHOWER LATER 9AM 12HRS. POST ELIMITE CREAM APPLICATION. NO COMPLAINTS OF PAIN/DISCOMFORT REPORTED OF THE TIME. CONTINUOUSLY MONITORED.
[2018-10-28 08:00] VITALS: BP 113/66
[2018-10-28] MEDS: ENOXAPARIN SODIUM 40 MG/0.4 ML DISP.SYRIN SQ SCH (08:58)
[2018-10-28] MEDS: METOCLOPRAMIDE HCL 10 MG TABLET GT SCH ×3 (08:59→17:01)
[2018-10-28] MEDS: busPIRone 5 MG TABLET GT SCH ×4 (08:59→21:26)
[2018-10-28] MEDS: PANTOPRAZOLE 40 MG/PACK PACK GT SCH (08:59)
[2018-10-28] MEDS: predniSONE 20 MG TABLET GT SCH (08:59)
[2018-10-28] MEDS: ASCORBIC ACID 500 MG TABLET GT SCH (08:59)
[2018-10-28] MEDS: CHOLECALCIFEROL 1,000 UNIT TABLET (VIT D3) GT SCH (08:59)
[2018-10-28] MEDS: ESCITALOPRAM OXALATE (10 MG) 10 MG TABLET GT SCH (09:00)
[2018-10-28] MEDS: METOPROLOL TARTRATE 25 MG TABLET GT SCH (09:00)
[2018-10-28] MEDS: GABAPENTIN 300 MG CAPSULE GT SCH ×3 (09:00→17:00)
[2018-10-28] MEDS: PROSOURCE / PROSTAT (PYXIS) 30 ML UDC GT SCH ×3 (09:00→17:02)
[2018-10-28] MEDS: FERROUS SULFATE UDC 300 MG/5 ML UDC GT SCH (09:00)
[2018-10-28] MEDS: GLYCOPYRROLATE 1 MG TABLET GT SCH ×2 (09:00→17:00)
[2018-10-28] MEDS: MULTIVITAMINS,THERAGRAN 1 UDTAB TABLET GT SCH (09:00)
[2018-10-28] MEDS: HYDROCORTISONE 1% CREAM 28.35 GM TUBE TP SCH ×2 (09:01→17:02)
[2018-10-28] MEDS ORDERED: PRED20TA GT (12:38)
[2018-10-28] MEDS ORDERED: IPRA0.2S9 NEB (12:38)
[2018-10-28] MEDS ORDERED: ALBU1.25 NEB (12:38)
[2018-10-28] MEDS ORDERED: GABA300C GT (12:38)
[2018-10-28] MEDS ORDERED: ESCI10TA GT (12:38)
[2018-10-28 16:00] VITALS: BP 100/61
--- NOTE | 2018-10-28 17:22 | NUR ---
PT RECEIVED TRACHED ON MECHANICAL VENT W/ NOTED SETTINGS. VENT ALARMS CHECKED AND AUDIBLE, VENT IN RED OUTLET, AMBUBAG AT BEDSIDE. TRACH TUBE PATENT, SECURED, CLEAN. BS EQUAL, DIMINISHED. PT SX'ED AND LAVAGED PRN. NO RESP DISTRESS NOTED. Addendum: 10/28/18 at 1722 by YANELIS KENNEDY RT Amended: Links added.
[2018-10-28] MEDS: GLUCERNA 1.2 1,000 ML BOTTLE GT PRN (17:32)
--- NOTE | 2018-10-28 18:34 | NUR ---
CHANNEL MACHINE OPERATOR CLOSING NOTES RESIDENT IN BED ALERT AND ORIENTED X 4, AFEBRILE WITH NO S/S OF DISTRESS OBSERVED. TRACH INTACT AND PATENT CONNECTED TO MECHANICAL VENTILATION. GTUBE INTACT AND PATENT WITH NO RESIDUAL ASPIRATED. NO NAUSEA/VOMITING NOTED WITHIN THE SHIFT. NO COMPLAINTS OF PAIN/DISCOMFORT REPORTED. STILL NOTED WITH EPISODES OF ANXIETY AND ALWAYS WANTS VISTARIL EVEN AFTER OFFERING NURSING INTERVENTIONS LIKE RELAXATION TECHNIQUE AND DIVERSIONAL ACTIVITIES. MEDICATIONS AND WOUND TREATMENTS PROVIDED ORDERED. MAINTAINED ON CONTACT ISOLATION FOR SCABIES, PROPER HANDWASHING AND ISOLATION PRECAUTIONS OBSERVED. KEPT CLEAN AND DRY, REPOSITIONED AND SUCTIONED EVERY 2HRS AND NEEDED/REQUESTED. OK FOR DISCHARGE TO SNF BUT PER CLINICAL ASST PROBABLY TOMORROW. WILL ENDORSE TO NOC SHIFT FOR CONTINUITY OF CARE.
--- NOTE | 2018-10-28 19:16 | NUR ---
DOUBLE HEAD MACHINE OPERATOR OPENING NOTES RECEIVED PATIENT IN BED, ASLEEP, EASILY AROUSED TO NAME CALL. TRACH PORTEX [address] MECHANICAL VENTILATION TOLERATED . AC:20, TV:420; FIO2 40%; NO PEEP. GT INTACT AND PATENT TOLERATING FEEDING, NO RESIDUAL NOTED HOB ELEVATED. LFA # 20 INTACT AND PATENT. BED IN LOWEST LOCKED POSITION. CONTACT PRECAUTIONS OBSERVED AT ALL TIMES, CALL LIGHT WITHIN EACH AT ALL TIMES. WILL CONTINUE TO MONITOR FREQUENTLY.
[2018-10-28 20:00] VITALS: BP 103/66
[2018-10-28] MEDS: MONTELUKAST SODIUM (10MG) 10 MG TABLET GT SCH (21:26)
[2018-10-28] MEDS: ACETAMINOPHEN 325 MG TABLET PO PRN (23:51)
[2018-10-29] VITALS (8 sets, daily range): BP systolic 100–118; BP diastolic 62–76
--- NOTE | 2018-10-29 00:45 | NUR ---
RN MS NOTES- FEEDING STOPPED, GTUBE LEAKING AT SITE, RESIDUAL OF 50ML, WILL CONTINUE TO MONITOR
[2018-10-29] MEDS: IPRATROPIUM NEB FS 0.5 MG/2.5 ML AMPUL.NEB NEB SCH ×6 (02:39→22:41)
[2018-10-29] MEDS: ALBUTEROL HALF STRENGTH 1.25 MG/3 ML VIAL.NEB NEB SCH ×6 (02:39→22:41)
[2018-10-29] MEDS: hydrOXYzine PAMOATE 25 MG CAPSULE PO PRN (05:20)
--- NOTE | 2018-10-29 06:04 | NUR ---
INSURANCE CASE MANAGER CLOSING NOTES PATIENT REMAINS IN BED, ASLEEP, EASILY AROUSED TO NAME CALL. TRACH PORTEX [address] MECHANICAL VENTILATION TOLERATED . AC:20, TV:420; FIO2 40%; NO PEEP. GT FEEDING STOPPED, LEAKING EARLIER. RESIDUAL OF 30ML, PUNGENT SOUR SMELL FROM GTUBE SITE. LFA # 20 INTACT AND PATENT. BED IN LOWEST LOCKED POSITION. CONTACT PRECAUTIONS OBSERVED AT ALL TIMES, CALL LIGHT WITHIN EACH AT ALL TIMES. WILL ENDORSE TO DAY NURSE FOR MYLES
--- NOTE | 2018-10-29 07:56 | NUR ---
SEXUAL ASSAULT COUNSELLOR NOTES PATIENT IN BED RESTING COMFORTABLY. PATIENT ON MECHANICAL VENTILATION. TOLERATING VENT SETTINGS WELL. TRACH PORTEX [address] AC:20, TV:420; FIO2 40%; NO PEEP. PATIENT IN NO ACUTE DISTRESS. NO SOB NOTED. PATIENT BREATHING IS EVEN AND UNLABORED. PATIENT RESIDUAL OF 25ML, WITH SOUR SMELL FROM GTUBE SITE. PATIENT BED IS LOCKED AND IN LOWEST POSITION. CALL LIGHT WITHIN REACH. WILL CONTINUE TO MONITOR.
--- NOTE | 2018-10-29 09:15 | NUR ---
CATCH BASIN CLEANER NOTE PATIENT IN BED RESTING COMFORTABLY. PATIENT WITH RESIDUAL OF 5ML. PATIENT STARTED ON GTUBE FEEDING, TO MONITOR FOR LEAKAGE AND FOLLOW UP.
[2018-10-29] MEDS: FERROUS SULFATE UDC 300 MG/5 ML UDC GT SCH (10:12)
[2018-10-29] MEDS: CHOLECALCIFEROL 1,000 UNIT TABLET (VIT D3) GT SCH (10:13)
[2018-10-29] MEDS: GLYCOPYRROLATE 1 MG TABLET GT SCH ×2 (10:13→16:22)
[2018-10-29] MEDS: MULTIVITAMINS,THERAGRAN 1 UDTAB TABLET GT SCH (10:13)
[2018-10-29] MEDS: predniSONE 20 MG TABLET GT SCH (10:13)
[2018-10-29] MEDS: busPIRone 5 MG TABLET GT SCH ×4 (10:14→21:33)
[2018-10-29] MEDS: METOCLOPRAMIDE HCL 10 MG TABLET GT SCH ×3 (10:14→16:22)
[2018-10-29] MEDS: GABAPENTIN 300 MG CAPSULE GT SCH ×3 (10:14→16:22)
[2018-10-29] MEDS: ESCITALOPRAM OXALATE (10 MG) 10 MG TABLET GT SCH (10:15)
[2018-10-29] MEDS: PANTOPRAZOLE 40 MG/PACK PACK GT SCH (10:15)
[2018-10-29] MEDS: ASCORBIC ACID 500 MG TABLET GT SCH (10:15)
[2018-10-29] MEDS: METOPROLOL TARTRATE 25 MG TABLET GT SCH (10:16)
[2018-10-29] MEDS: HYDROCORTISONE 1% CREAM 28.35 GM TUBE TP SCH ×2 (10:17→17:05)
--- NOTE | 2018-10-29 10:40 | NUR ---
CLEANERS NOTE PATIENT SEEN AND EVALUATED BY DR. MCKEON. ORDERS TO REDUCE GTUBE FEEDING RATE TO 50ML/HR TO REDUCE RISK OF LEAKAGE PER MD. MONITOR SITE TO KEEP CLEAN AND DRY.NO LEAKAGE AT THIS TIME. NO FOUL ODOR. WILL CARRY OUT ORDERS. PATIENT IN NO ACUTE DISTRESS. WILL CONTINUE TO MONITOR.
[2018-10-29] MEDS: BUDESONIDE RESPULE INH 0.5 MG/2 ML AMPUL.NEB IH SCH ×2 (11:06→19:48)
[2018-10-29] MEDS: PROSOURCE / PROSTAT (PYXIS) 30 ML UDC GT SCH ×3 (11:08→17:06)
[2018-10-29] MEDS: ENOXAPARIN SODIUM 40 MG/0.4 ML DISP.SYRIN SQ SCH (14:10)
--- NOTE | 2018-10-29 19:00 | NUR ---
MR RN CLOSING NOTE PATIENT IN BED RESTING COMFORTABLY. PATIENT ON MECHANICAL VENTILATION. TOLERATING VENT SETTINGS WELL. TRACH PORTEX [address] AC:20, TV:420; FIO2 40%; NO PEEP. PATIENT IN NO ACUTE DISTRESS. NO SOB NOTED. PATIENT BREATHING IS EVEN AND UNLABORED. GTUBE WAS PATENT AND INTACT. NO SIGNS OF LEAKAGE. NO FOUL ODOR SMELL. WOUND CARE PROVIDED ORDERED. PATIENT KEPT CLEAN, DRY, AND COMFORTABLE. EXTREMITIES OFFLOADED ON PILLOWS.PATIENT BED IS LOCKED AND IN LOWEST POSITION. CALL LIGHT WITHIN REACH. WILL ENDORSE CARE TO PM SHIFT FOR MYLES. Addendum: 10/29/18 at 1999 by MAEVE ESCAMILLA RN MARINE ELECTRICIAN APPRENTICE CLOSING NOTE PATIENT IN BED RESTING COMFORTABLY. PATIENT ON MECHANICAL VENTILATION. TOLERATING VENT SETTINGS WELL. TRACH PORTEX [address] AC:20, TV:420; FIO2 40%; NO PEEP. PATIENT IN NO ACUTE DISTRESS. NO SOB NOTED. PATIENT BREATHING IS EVEN AND UNLABORED. GTUBE WAS PATENT AND INTACT. NO SIGNS OF LEAKAGE. NO FOUL ODOR SMELL. WOUND CARE PROVIDED ORDERED. PATIENT KEPT CLEAN, DRY, AND COMFORTABLE. EXTREMITIES OFFLOADED ON PILLOWS.PATIENT BED IS LOCKED AND IN LOWEST POSITION. CALL LIGHT WITHIN REACH. WILL ENDORSE CARE TO PM SHIFT FOR MYLES.
--- NOTE | 2018-10-29 19:25 | NUR ---
LAMINATED PLASTICS ASSEMBLER AND GLUER OPENING NOTES RECEIVED PATIENT IN BED, ASLEEP, EASILY AROUSED TO NAME CALL. TRACH PORTEX [address] MECHANICAL VENTILATION TOLERATED . AC:20, TV:420; FIO2 40%; NO PEEP. GT INTACT AND PATENT TOLERATING FEEDING, CHECKED BY MD, NO LONGER LEAKING. LFA # 20 INTACT AND PATENT. BED IN LOWEST LOCKED POSITION. CONTACT PRECAUTIONS OBSERVED AT ALL TIMES, CALL LIGHT WITHIN EACH AT ALL TIMES. WILL CONTINUE TO MONITOR FREQUENTLY.
[2018-10-29] MEDS ORDERED: IVERMECTIN 3 MG TABLET GT ONE (20:00)
[2018-10-29] MEDS: MONTELUKAST SODIUM (10MG) 10 MG TABLET GT SCH (21:33)
[2018-10-30] VITALS: BP 100/59
[2018-10-30 04:00] VITALS: BP 111/49
[2018-10-30] MEDS: IPRATROPIUM NEB FS 0.5 MG/2.5 ML AMPUL.NEB NEB SCH ×6 (04:15→23:38)
[2018-10-30] MEDS: ALBUTEROL HALF STRENGTH 1.25 MG/3 ML VIAL.NEB NEB SCH ×6 (04:15→23:38)
--- NOTE | 2018-10-30 06:23 | NUR ---
TEENAGE BABYSITTER CLOSING NOTES PATIENT REMAINS IN BED, ASLEEP, EASILY AROUSED TO NAME CALL. TRACH PORTEX [address] MECHANICAL VENTILATION TOLERATED . AC:20, TV:420; FIO2 40%; NO PEEP. GTUBE FEEDING RUNNING , TOLERATING, 10ML RESIDUAL. LFA # 20 INTACT AND PATENT. BED IN LOWEST LOCKED POSITION. CONTACT PRECAUTIONS OBSERVED AT ALL TIMES, CALL LIGHT WITHIN EACH AT ALL TIMES. WILL ENDORSE TO DAY NURSE FOR MYLES
[2018-10-30 07:09] LABS: BASOPHILS % (AUTO) 0.3 % (0.0-2.0); EOSINOPHILS % (AUTO) 1.5 % (0.0-6.0); HEMATOCRIT 31 % (33-45); HEMOGLOBIN 9.9 g/dL (11.5-14.8); LYMPHOCYTES % (AUTO) 9.4 % (20.0-44.0); MEAN CORPUSCULAR HGB CONC 32 g/dl (31.0-36.0); MEAN CORPUSCULAR VOLUME 100 fL (82-100); MONOCYTES # (AUTO) 0.8 /CMM (0.1-1.30); MONOCYTES % (AUTO) 7.1 % (2.0-12.0); NEUTROPHILS % (AUTO) 81.7 % (43.0-81.0); PLATELET COUNT (AUTO) 301 /CMM (150-450); RED BLOOD CELL COUNT(AUTO) 3.06 MIL/uL (4.0-5.2)
[2018-10-30 07:22] LABS: CREATININE 0.7 mg/dL (0.6-1.3); PHOSPHORUS 3.2 mg/dL (2.5-4.9)
--- NOTE | 2018-10-30 07:25 | NUR ---
RN OPENING NOTES REPORT RECEIVED FROM LANDSCAPE SUPERVISOR RN. PT IS ASLEEP. EQUAL CHEST RISE AND FALL. NO OBVIOUS SIGNS OF PAIN AND O2 SATURATION READING AT 100%. G-TUBE FEEDING RUNNING AT 65 MLS. BED IS LOCKED AND IN LOWEST POSITION WITH CALL LIGHT IN REACH WILL CONTINUE TO MONITOR.
[2018-10-30 08:00] VITALS: BP 103/66
[2018-10-30] MEDS: BUDESONIDE RESPULE INH 0.5 MG/2 ML AMPUL.NEB IH SCH ×2 (08:02→20:30)
[2018-10-30] MEDS: METOPROLOL TARTRATE 25 MG TABLET GT SCH (09:00)
[2018-10-30] MEDS: FERROUS SULFATE UDC 300 MG/5 ML UDC GT SCH (09:27)
[2018-10-30] MEDS: GLYCOPYRROLATE 1 MG TABLET GT SCH ×2 (09:28→17:22)
[2018-10-30] MEDS: METOCLOPRAMIDE HCL 10 MG TABLET GT SCH ×3 (09:28→17:22)
[2018-10-30] MEDS: predniSONE 20 MG TABLET GT SCH (09:28)
[2018-10-30] MEDS: MULTIVITAMINS,THERAGRAN 1 UDTAB TABLET GT SCH (09:28)
[2018-10-30] MEDS: PANTOPRAZOLE 40 MG/PACK PACK GT SCH (09:28)
[2018-10-30] MEDS: GABAPENTIN 300 MG CAPSULE GT SCH ×3 (09:28→17:21)
[2018-10-30] MEDS: CHOLECALCIFEROL 1,000 UNIT TABLET (VIT D3) GT SCH (09:28)
[2018-10-30] MEDS: ASCORBIC ACID 500 MG TABLET GT SCH (09:28)
[2018-10-30] MEDS: busPIRone 5 MG TABLET GT SCH ×4 (09:29→20:44)
[2018-10-30] MEDS: ESCITALOPRAM OXALATE (10 MG) 10 MG TABLET GT SCH (09:29)
[2018-10-30] MEDS: HYDROCORTISONE 1% CREAM 28.35 GM TUBE TP SCH ×2 (09:30→17:22)
[2018-10-30] MEDS: ENOXAPARIN SODIUM 40 MG/0.4 ML DISP.SYRIN SQ SCH (09:33)
[2018-10-30] MEDS: PROSOURCE / PROSTAT (PYXIS) 30 ML UDC GT SCH ×3 (09:34→17:22)
--- NOTE | 2018-10-30 10:47 | NUR ---
SAW PT AND STATED THAT HE IS OKAY WITH THE G TUBE SITE THAT IT LOOKS GOOD AND PT IS GOOD FOR DISCHARGE ON ANTIBIOTICS FOR REDNESS OF G-TUBE SITE.
[2018-10-30 12:00] VITALS: BP 100/64
[2018-10-30 16:00] VITALS: BP 92/57
--- NOTE | 2018-10-30 18:55 | NUR ---
RN CLOSING NOTES PT IN BED WATCHING TELEVISION TOLERATING VENT SETTINGS. PT IS ON G-TUBE FEEDING 60MLS/HR. BED IS LOCKED AND IN LOWEST POSITION WITH CALL LIGHT IN REACH WILL ENDORSE CONTINUATION OF CARE TO GAS SCRUBBER OPERATOR RN.
--- NOTE | 2018-10-30 19:35 | NUR ---
REPORT GIVEN TO EMT'S WITH EXITCARE PACKET PROPERTY ADMINISTRATOR RN TO REMOVE IV.
[2018-10-30 20:00] VITALS: BP 104/55
[2018-10-30] MEDS: MONTELUKAST SODIUM (10MG) 10 MG TABLET GT SCH (20:43)
[2018-10-30] MEDS: hydrOXYzine PAMOATE 25 MG CAPSULE PO PRN (20:58)
--- NOTE | 2018-10-30 21:14 | NUR ---
G-TUBE RESIDUAL CHECKED=60ML, TUBE FEEDING HELD AT THIS TIME. SITE HAS SLIGHT SKIN REDNESS ON PERIOSTOMAL AREA WITH VERY MINIMAL DRAIN BROWNISH, PURULENT. NO ODOR NOTED, DRESSING CHANGED.
--- NOTE | 2018-10-30 23:00 | NUR ---
g-tube residual checked= none. tube feeding resumed.
[2018-10-31] VITALS (7 sets, daily range): BP systolic 113–131; BP diastolic 69–81
[2018-10-31] MEDS: ACETAMINOPHEN 325 MG TABLET PO PRN ×3 (04:07→21:20)
[2018-10-31] MEDS: ALBUTEROL HALF STRENGTH 1.25 MG/3 ML VIAL.NEB NEB SCH ×5 (04:24→20:18)
[2018-10-31] MEDS: IPRATROPIUM NEB FS 0.5 MG/2.5 ML AMPUL.NEB NEB SCH ×5 (04:24→20:18)
--- NOTE | 2018-10-31 07:00 | NUR ---
RN CLOSING NOTES: PATIENT IS RESTING COMFORTABLY IN BED, ASLEEP. NO ACUTE EVENTS OVERNIGHT. BREATHING TX BEEN GIVEN BY THE RT. WITH TRACH. RT SUCTIONED THE PATIENT. NO ACUTE EVENTS OVERNIGHT. REFUSED DRESSING CHANGE ON THE RIGHT SIDE OF THE CHEST. DRESSING IS DRY AND INTACT. CALL LIGHT WITHIN REACH. BED ALRM ON AND BED IN LOW AND LOCKED POSITION. CONTACT ISOLATION FOR SCABIES MAINTAINED. WITH G-TUBE FEEDING RUNNING AT 65ML/HR,TOLERATING.
--- NOTE | 2018-10-31 08:00 | NUR ---
EVENT STAFF OPENING NOTES Received Patient resting and asleep in bed. A/O x 4. VS stable with no acute distress. Breathing even and unlabored on trachea and vent with no respiratory distress. No signs and symptoms of pain. Telemonitor in place and operational reading SR with HR-80. G-Tube clean, dry, intact and flushing well with Glucerna 1.2 running at 65ml/hr. 22g PIV on LFA clean, dry, intact and flushing well. Isolation precautions in place. Safety precautions in place. Bed locked and set to lowest position with side rails x 2 up. Will continue to monitor.
[2018-10-31] MEDS: BUDESONIDE RESPULE INH 0.5 MG/2 ML AMPUL.NEB IH SCH (08:01)
[2018-10-31] MEDS: busPIRone 5 MG TABLET GT SCH ×4 (09:07→20:17)
[2018-10-31] MEDS: GLYCOPYRROLATE 1 MG TABLET GT SCH ×2 (09:08→17:31)
[2018-10-31] MEDS: ESCITALOPRAM OXALATE (10 MG) 10 MG TABLET GT SCH (09:08)
[2018-10-31] MEDS: ASCORBIC ACID 500 MG TABLET GT SCH (09:09)
[2018-10-31] MEDS: predniSONE 20 MG TABLET GT SCH (09:09)
[2018-10-31] MEDS: PANTOPRAZOLE 40 MG/PACK PACK GT SCH (09:09)
[2018-10-31] MEDS: METOPROLOL TARTRATE 25 MG TABLET GT SCH (09:09)
[2018-10-31] MEDS: MULTIVITAMINS,THERAGRAN 1 UDTAB TABLET GT SCH (09:09)
[2018-10-31] MEDS: METOCLOPRAMIDE HCL 10 MG TABLET GT SCH ×3 (09:09→17:31)
[2018-10-31] MEDS: GABAPENTIN 300 MG CAPSULE GT SCH ×3 (09:09→17:31)
[2018-10-31] MEDS: CHOLECALCIFEROL 1,000 UNIT TABLET (VIT D3) GT SCH (09:09)
[2018-10-31] MEDS: ENOXAPARIN SODIUM 40 MG/0.4 ML DISP.SYRIN SQ SCH (09:10)
[2018-10-31] MEDS: FERROUS SULFATE UDC 300 MG/5 ML UDC GT SCH (09:13)
[2018-10-31] MEDS: PROSOURCE / PROSTAT (PYXIS) 30 ML UDC GT SCH ×3 (09:25→17:35)
[2018-10-31] MEDS: HYDROCORTISONE 1% CREAM 28.35 GM TUBE TP SCH ×2 (09:26→17:36)
--- NOTE | 2018-10-31 10:00 | NUR ---
COVER MAKING MACHINE OPERATOR NOTES Patient seen by Yamileth LOERA for wound treatment at this time. Patient tolerated well. Wound dressing clean, dry, and intact. Will continue to monitor.
--- NOTE | 2018-10-31 14:21 | NUR ---
HOGSHEAD PACKER NOTE PER SHUKRI IN PATHOLOGY SCABIES SKIN SCRAPE IS NEGATIVE
--- NOTE | 2018-10-31 14:49 | NUR ---
DIRECTOR OF CONTENT MARKETING NOTES Received and faxed Scabies Skin Test Results to Ritika ([facility] Admissions Dept.) at this time. Will continue to monitor.
[2018-10-31] MEDS: hydrOXYzine PAMOATE 25 MG CAPSULE PO PRN (17:31)
--- NOTE | 2018-10-31 19:33 | NUR ---
RADIO COMMENTATOR CLOSING NOTES Patient resting and asleep in bed. A/O x 4. VS stable with no acute distress. Breathing even and unlabored on trachea and vent with no respiratory distress. Denies pain. Telemonitor in place and operational reading SR with HR-85. G-Tube clean, dry, intact and flushing well. 22g PIV on LFA clean, dry, intact and flushing well. Wound pictures taken and placed in chart per protocol. Medication reconciliation and discharge orders reviewed and explained to Patient. Patient verbalized understanding. All belongings with Patient. Safety precautions in place. Bed locked and set to lowest position with side rails x 2 up. Will endorse plan of care to oncoming shift.
--- NOTE | 2018-10-31 19:48 | NUR ---
FIELD ACCOUNT DIRECTOR OPENING NOTES: RECEIVED PT ON VENT WITH SETTINGS PORTEX #6 AC 20, TV 420, FIO2 40%, AND NO PEEP. PT IS A/OX4. NO SOB NOTED. NO S/S OF DISTRESS. PT ANTICIPATING TO GO FOR DISCHARGE. PT HAS G TUBE WELL. FEEDING SHUT OFF AT THIS TIME. PT ON TELE BOX AND READING SHOWS SR 87. BED KEPT IN LOW, LOCKED POSITION, AND SIDE RAILS X 2UP. WILL CONTINUE TO MONITOR PT. Addendum: 10/31/18 at 2026 by ISSA LOUIS RN 5ML RESIDUAL NOTED ON G TUBE AND WAS FLUSHED. FEEDING RESUMED FOR NOW UNTIL M48 M60 ARMOR CREWMAN FOR REE.
--- NOTE | 2018-10-31 20:13 | NUR ---
BLENDER/BRAZE APPLICATOR NOTES: SPOKE WITH ANTHONY HERNANDEZ FROM [facility] AND GAVE REPORT. AWAITING FOR PICKUP FROM [facility]. PT TO GO TO ROOM 341 BED #C.
[2018-10-31] MEDS: MONTELUKAST SODIUM (10MG) 10 MG TABLET GT SCH (21:05)
--- NOTE | 2018-10-31 21:05 | NUR ---
WILDLIFE CONSERVATIONIST NOTES: SINGULAIR 10MG WAS SCANNED BUT IT DID NOT SAVE. HAD TO MANUALLY BARCODE.
--- NOTE | 2018-10-31 21:26 | NUR ---
COLLECTIONS MANAGER NOTES: L FOREARM IV REMOVED. AMWEST RT AND 2 DISEASE MANAGEMENT NURSE AT BEDSIDE. PT IN STABLE CONDITION. PT REQUESTED FOR TYLENOL 650MG FOR GENERALIZED PAIN BEFORE DISCHARGE.
--- NOTE | 2018-10-31 21:30 | NUR ---
MELTER CLERK NOTES: ALL BELONGINGS TAKEN WITH PT AND LMFT AND RT FROM [facility]. PT LEFT FLOOR IN STABLE CONDITION.
[2018-11-01] MEDS ORDERED: predniSONE 5 MG TABLET PO SCH (09:00)
== END 2018-10-31 21:25 | DRG 981 ==
LOC: ER 22:21 → TELE 10-21 01:29
PROVIDERS: ADMIT Internal Medicine; ATTEND Internal Medicine Nephrology
PROC: 5A1955Z Respiratory Ventilation, Greater than 96 Consecutive Hours (ICD-10-PCS; 2018-10-21)
PROC: 0KBH0ZZ Excision of Right Thorax Muscle, Open Approach (ICD-10-PCS; principal; 2018-10-22)
DX: N39.0 Urinary tract infection, site not specified (principal); J96.21 Acute and chronic respiratory failure with hypoxia; Z99.11 Dependence on respirator [ventilator] status; S21.101A Unspecified open wound of right front wall of thorax without penetration into thoracic cavity, initial encounter; J93.81 Chronic pneumothorax; Z43.1 Encounter for attention to gastrostomy; E86.0 Dehydration; E11.9 Type 2 diabetes mellitus without complications; F41.9 Anxiety disorder, unspecified; R13.10 Dysphagia, unspecified; J44.9 Chronic obstructive pulmonary disease, unspecified; Z88.2 Allergy status to sulfonamides; R21 Rash and other nonspecific skin eruption; X58.XXXA Exposure to other specified factors, initial encounter; Y93.9 Activity, unspecified; Y92.129 Unspecified place in nursing home as the place of occurrence of the external cause; F41.1 Generalized anxiety disorder; B86 Scabies; B95.1 Streptococcus, group B, as the cause of diseases classified elsewhere; Z93.0 Tracheostomy status; Z87.891 Personal history of nicotine dependence; L98.8 Other specified disorders of the skin and subcutaneous tissue; I10 Essential (primary) hypertension
CPT/HCPCS: 31720; 36415; 36600; 71045-TC; 80048-TC; 80053-TC; 80061-TC; 80076-TC; 81000-TC; 82272-TC; 82728-TC; 82803-TC; 83540-TC; 83605-TC; 83735-TC; 83880; 84100-TC; 84484-TC; 85025-TC; 85378-TC; 85652-TC; 85730-TC; 86706; 86803; 87040-TC; 87081-TC; 87086-TC; 87340; 92526; 92611-TC; 93970-TC; 94003-TC; 94760-TC; 94762-TC; 99082-TC; A4623; A6253; A6403; G0378; J0696; J1650; J2543; J7030; J7050; J7060; J8597; Q0177; Q9967